=== PATIENT | female | born 1995 | race Native Hawaiian/Other Pacific Islander ===

== ENCOUNTER 2022-07-20 09:23 | Emergency (ER) | payer OTHER, SELFPAY ==
[2022-07-20 09:45] VITALS: BP 131/71; PULSE 101; RESP 14; TEMP 36.5; O2SAT 99; BMI 32.9
[2022-07-20 11:09] LABS: Influenza A - CEPHEID Flu A POSITIVE (NEGATIVE); Influenza B - CEPHEID Flu B NEGATIVE (NEGATIVE); Respiratory Syncytial Virus Negative (Negative)
[2022-07-20 11:16] LABS: COVID-19 CEPHEID 4-PLEX PCR Negative (Negative)
[2022-07-20 13:18] VITALS: PULSE 98; RESP 18; O2SAT 99
--- NOTE | 2022-07-20 14:13 | ED.URI ---
HPI - URI/Sore Throat <Jamie Prater PA-C - Last Filed: 07/20/22 14:15> General Chief Complaint: Upper Respiratory Symptoms Stated Complaint: coughing,throat hurts,runny nose Time Seen by Provider: 07/20/22 12:34 Source: patient Mode of arrival: Ambulatory History of Present Illness HPI Narrative: 26-year-old female with no reported past medical history presents to the ED with 6 days of fever, cough, sore throat. Denies chest pain, shortness of breath, nausea, vomiting, diarrhea, lightheadedness, dizziness, syncope. Review of Systems <Jamie Prater PA-C - Last Filed: 07/20/22 14:15> Review of Systems ROS Unobtainable: All systems reviewed & are unremarkable except as noted in HPI and below Constitutional Constitutional: Denies chills, Reports fatigue, Reports fever(s), Denies frequent falls, Reports lethargy and Denies weakness Eyes Eyes: Denies change in vision, Denies eye discharge, Denies irritation and Denies loss of vision ENT Ears, Nose, Mouth, and Throat: Denies change in voice, Denies dizziness, Denies neck pain, Reports sore throat and Denies throat swelling Cardiovascular Cardiovascular: Denies chest pain, Denies irregular heart rhythm, Denies lightheadedness, Denies palpitations, Denies dyspnea, Denies dyspnea on exertion and Denies orthopnea Respiratory Respiratory: Reports cough, Denies dyspnea, Denies dyspnea on exertion and Denies wheezing Gastrointestinal Gastrointestinal: Denies abdominal pain, Denies change in bowel habits, Denies diarrhea, Denies nausea and Denies vomiting Genitourinary Genitourinary: Denies hematuria, Denies flank pain, Denies urinary incontinence and Denies urinary urgency Musculoskeletal Musculoskeletal: Denies back pain, Denies muscle weakness, Denies neck pain, Denies numbness and Denies tingling Integumentary/Breasts Skin/Breast: Denies pruritus, Denies erythema, Denies rash and Denies wounds Neurologic Neurologic: Denies behavioral changes, Denies confusion, Denies dizziness, Denies frequent falls, Denies loss of vision, Denies numbness, Denies tingling and Denies weakness Psychiatric Psychiatric: Denies anxiety, Denies behavioral changes, Denies confusion, Denies depression, Denies homicidal ideation and Denies suicidal ideation Endocrine Endocrine: Reports fatigue, Denies flushing and Denies palpitations Hematologic/Lymphatic Hematologic/Lymphatic: Denies easy bruising Allergic/Immunologic Allergic/Immunologic: Denies urticaria, Denies throat swelling and Denies wheezing Patient History <Jamie Prater PA-C - Last Filed: 07/20/22 14:15> Social History Smoking Status: Never smoker Smoking Status: Never smoker alcohol intake frequency: holidays/special occasions only Substance Use Type: does not use Exam <Jamie Prater PA-C - Last Filed: 07/20/22 14:15> Narrative Exam Narrative: Const General:?cooperative, healthy appearing and comfortable HENID Head:?normal to inspection Ears:?hearing grossly normal bilaterally Nose:?external nose normal Face and sinus:?normal facial exam and sinuses nontender Mouth:?oral mucosae normal Throat:?posterior oropharynx normal Eyes General:?appearance normal, both eyes and all related structures Neck Neck:?normal visual inspection and no lymphadenopathy noted Resp Effort & Inspection:?normal respiratory effort Auscultation:?clear to auscultation bilaterally Cardio Rate:?regular rate Rhythm:?regular rhythm Neuro General:?patient alert, patient awake and patient oriented x3 Initial Vital Signs Initial Vital Signs: Vital Signs Temperature 97.7 F 07/20/22 09:45 Pulse Rate 101 H 07/20/22 09:45 Respiratory Rate 14 07/20/22 09:45 Blood Pressure 131/71 07/20/22 09:45 Pulse Oximetry 99 07/20/22 09:45 Oxygen Delivery Method 07/20/22 09:45 <Desire Walter DO - Last Filed: 07/21/22 09:17> Initial Vital Signs Initial Vital Signs: Vital Signs Temperature 97.7 F 07/20/22 09:45 Pulse Rate 101 H 07/20/22 09:45 Respiratory Rate 14 07/20/22 09:45 Blood Pressure 131/71 07/20/22 09:45 Pulse Oximetry 99 07/20/22 09:45 Oxygen Delivery Method 07/20/22 09:45 Course <Jamie Prater PA-C - Last Filed: 07/20/22 14:15> Orders Ordered: ED Orders 07/20/22 09:52 Covid-19 + FLU A/B + RSV - PCR Stat Vital Signs Vital signs: Vital Signs - 8 hr 07/20/22 09:45 07/20/22 13:18 Temperature 97.7 F Pulse Rate 101 H 98 H Respiratory Rate 14 18 Blood Pressure 131/71 Pulse Oximetry 99 99 Oxygen Delivery Method Room Air Room Air <Desire Walter DO - Last Filed: 07/21/22 09:17> Orders Ordered: ED Orders 07/20/22 09:52 Covid-19 + FLU A/B + RSV - PCR Stat Vital Signs Vital signs: Vital Signs - 8 hr 07/20/22 09:45 07/20/22 13:18 Temperature 97.7 F Pulse Rate 101 H 98 H Respiratory Rate 14 18 Blood Pressure 131/71 Pulse Oximetry 99 99 Oxygen Delivery Method Room Air Room Air MDM - URI/Sore Throat <Jamie Prater PA-C - Last Filed: 07/20/22 14:15> Lab Data Labs: Lab Results 07/20/22 Range/Units 09:52 SARS-CoV-2 (PCR) Negative (Negative) Influenza A (RT-PCR) Flu a positive H (NEGATIVE) Influenza B (RT-PCR) Flu b negative (NEGATIVE) RSV (PCR) Negative (Negative) MDM Narrative Medical decision making narrative: 26-year-old female with no reported past medical history presents to the ED with 6 days of fever, cough, sore throat. Patient tested positive for influenza A in the emergency room. Patient appears well, vital signs stable. Recommend Delsym for cough, Tylenol/ibuprofen for fever, myalgias. Recommend good hydration. ED return precautions discussed with patient. Patient verbalized understanding. <DO Joshua Arteaga Last Filed: 07/21/22 09:17> Lab Data Labs: Lab Results 07/20/22 Range/Units 09:52 SARS-CoV-2 (PCR) Negative (Negative) Influenza A (RT-PCR) Flu a positive H (NEGATIVE) Influenza B (RT-PCR) Flu b negative (NEGATIVE) RSV (PCR) Negative (Negative) Discharge Plan Departure Patient Disposition: Home Clinical Impression: Influenza A Instructions: DI for Influenza -- Adult Activity Restrictions/Additional Instructions: You were evaluated in the ED today for a cough and fever. You tested positive for influenza A. You may take Tylenol, ibuprofen for fever control and aches and pains. You may take Delsym for cough. Please continue to hydrate well with water, juice, Pedialyte, Gatorade. Return to the ED if you are persistently vomiting and unable to keep down solids, liquids or you experience trouble breathing. Visit Report Forms: Patient Portal/API <Desire Walter DO - Last Filed: 07/21/22 09:17> Cosign ED Attending [place] Attestation: I was immediately available in the department for consultation. Documentation has been reviewed. I agree with assessment and plan.
== END 2022-07-20 13:18 | disposition home or self-care (01) ==
PROVIDERS: Emergency Medicine; Emergency Provider Student in an Organized Health Care Education/Training Program
DX: J10.1 Influenza due to other identified influenza virus with other respiratory manifestations (principal)
CPT/HCPCS: 0241U; 99281; 99282